=== PATIENT | female | born 1945 | race Caucasian/White ===

== ENCOUNTER 2021-04-09 08:21 | Outpatient (CLI) | payer MEDICARE, SELFPAY ==
[2021-04-09 08:36] LABS: Basophils Absolute Auto 0.04 K/mm3 (0.00-0.10); Basophils Percent Auto 0.5 % (0.0-1.0); Eosinophils Absolute Auto 0.13 K/mm3 (0.02-0.50); Eosinophils Percent Auto 1.6 % (1.0-6.0); Hematocrit 43.9 % (35.0-42.0); Hemoglobin 13.8 g/dL (11.7-13.8); Immature Granulocyte Absolute 0.12 K/mm3 (0.00-0.00); Immature Granulocyte Percent A 1.5 % (0.0-0.0); Lymphocytes Absolute Auto 1.44 K/mm3 (1.10-4.50); Lymphocytes Percent Auto 17.6 % (18.0-42.0); Mean Corpuscular HGB Conc 31.4 g/dL (32.0-36.0); Mean Corpuscular Hemoglobin 30.5 pg (27.0-31.0); Mean Corpuscular Volume 96.9 fL (78.0-102.0); Mean Platelet Volume 9.6 fl (9.2-11.8); Monocytes Absolute Auto 0.68 K/mm3 (0.10-0.90); Monocytes Percent Auto 8.3 % (2.0-11.0); Neutrophils Absolute Auto 5.8 K/mm3 (1.7-7.2); Neutrophils Percent Auto 70.5 % (50.0-70.0); Platelet Count Result 233 K/mm3 (150-420); Red Blood Count 4.53 M/mm3 (4.20-5.40); White Blood Count 8.2 K/mm3 (4.8-10.8)
[2021-04-09 08:39] LABS: Add Urine Microscopic? YES; Appearance Urine Sl Cloudy (Clear); Bilirubin Urine Negative (Negative); Blood Urine Negative (Negative); Color Urine Light Yellow (Yellow); Glucose Urine UA Negative (Negative); Ketones Urine Negative (Negative); Leukocyte Esterase Ur Trace (Negative); Nitrate Urine Negative (Negative); Protein Urine Negative (Negative); Urobilinogen Urine 0.2 mg/dL (0.2-1.0)
[2021-04-09 08:44] LABS: Bacteria Urine Trace /hpf; RBC Urine None seen /hpf (0-2); Squamous Epithelial Cell Urine Moderate /hpf (Few); WBC Urine 0-3 /hpf (0-3)
[2021-04-09 09:11] LABS: Alanine Aminotransferase 35 U/L (14-59); Alkaline Phosphatase 153 U/L (46-116); Anion Gap 7 mmol/L (8-16); Aspartate Amino Transferase 22 U/L (15-37); Bilirubin,Total 0.5 mg/dL (0.00-1.00); Blood Urea Nitrogen 25 mg/dL (7-18); Calcium 9.4 mg/dL (8.5-10.1); Carbon Dioxide 31 mmol/L (21-32); Chloride 103 mmol/L (98-108); Cholesterol 152 mg/dL (0-200); Estimated Glomerular Filt Rate > 60; Glucose 111 mg/dL (70-99); HDL Direct 47 mg/dL (40-60); LDL Cholesterol Calculated 89 mg/dL (<130); Osmolality Calculated 297 mOsm/kg (285-295); Potassium 4.2 mmol/L (3.5-5.1); Sodium 141 mmol/L (136-145); Total Protein 7.1 g/dL (6.4-8.2); Triglycerides 82 mg/dL (0-150)
[2021-04-09 18:18] LABS: Hemoglobin A1C 6.2 % (<5.7)
== END 2021-04-09 08:22 | disposition home or self-care (01) ==
LOC: CHSLAB 08:23
PROVIDERS: PCP Internal Medicine; Visit Provider Internal Medicine
DX: R82.71 Bacteriuria (principal); I25.10 Atherosclerotic heart disease of native coronary artery without angina pectoris; J44.9 Chronic obstructive pulmonary disease, unspecified; R73.01 Impaired fasting glucose
CPT/HCPCS: 36415; 80053; 80061; 81001; 83036; 85025; 87086; 87088

== ENCOUNTER 2021-11-20 10:07 | Outpatient (CLI) | payer MEDICARE, BC, SELFPAY ==
--- NOTE | ~2021-11-20 | XR_ITS ---
EXAMINATION: XR chest 2V EXAM DATE: 11/20/2021 10:23 INDICATION: Cough since Wednesday hx of COPD. TECHNIQUE: Frontal and lateral projections of the chest obtained and reviewed. Comparison is made to prior examination from 05/24/2018. FINDINGS: Bibasilar linear scarring or subsegmental atelectasis. No confluent consolidation. There ar e no pleural effusions. The cardiomediastinal silhouette is within normal limits. There is no pneum othorax suspected. The bones and soft tissues are unremarkable. IMPRESSION: Bibasilar linear opacity most consistent with scarring or atelectasis. Reviewed, dictated and finalized at location B. IMPRESSION: Bibasilar linear opacity most consistent with scarring or atelectas is.
== END 2021-11-20 10:08 | disposition home or self-care (01) ==
LOC: CHSIMG 10:10
PROVIDERS: PCP Internal Medicine; Visit Provider Internal Medicine
DX: R05.9 Cough, unspecified (principal)
CPT/HCPCS: 71046

== ENCOUNTER 2022-05-07 13:29 | Outpatient (CLI) | payer MEDICARE, BC, SELFPAY ==
--- NOTE | ~2022-05-07 | MM_ITS ---
EXAMINATION: MM screening [facility] BI w vitaliy HISTORY: Screening mammogram TECHNIQUE: Craniocaudal and mediolateral oblique 3-D tomosynthesis images were obtained and synthetic 2-D images were generated. CAD analysis was submitted and interpreted. COMPARISON: 11/04/2018, 10/07/2017, 10/06/2016 bilateral screening mammogram examinations BREAST PARENCHYMAL COMPOSITION: The breasts are almost entirely fatty. FINDINGS: There is no evidence of suspicious mass, calcification, or architectural distortion to sugg est malignancy in either breast. There has been no suspicious interval change. IMPRESSION: 1. No mammographic evidence of malignancy. 2. Recommend routine screening mammography in one year. BI-RADS Category 1: Negative Reviewed, dictated and finalized at location A.
--- NOTE | ~2022-05-07 | CT_ITS ---
EXAMINATION: CT lung screening DATE: 05/07/2022 14:17 INDICATION: History of tobacco dependence TECHNIQUE: Computed tomography (CT) of the chest was performed without intravenous contrast. The dose -length product was 144.68 mGy-cm. Automated exposure control and iterative reconstruction technique were employed. COMPARISON: CT dated 08/22/2019 FINDINGS: Heart size normal. No thoracic lymphadenopathy. No significant pleural or pericardial abnor mality. Atherosclerosis of the aorta and coronary arteries. Stable bilateral adrenal nodules, largest on the left measuring 6.6 x 3.4 cm, likely benign adenomas. There is emphysema. No endobronchial les ions. 4 mm right fissural nodule, image 86, unchanged. No new pulmonary nodules or masses. There is d ependent atelectasis. IMPRESSION: 1. Lung-RADS category 2: Benign appearance or behavior. Continue annual screening with noncontrast lo w-dose chest CT in 12 months. Reviewed, dictated and finalized at location B. IMPRESSION: 1. Lung-RADS category 2: Benign appearance or behavior. Continue annual screeni ng with noncontrast low-dose chest CT in 12 months.
== END 2022-05-07 13:30 | disposition home or self-care (01) ==
PROVIDERS: PCP Internal Medicine; Visit Provider Internal Medicine
DX: Z12.31 Encounter for screening mammogram for malignant neoplasm of breast (principal); Z12.2 Encounter for screening for malignant neoplasm of respiratory organs; Z87.891 Personal history of nicotine dependence
CPT/HCPCS: 71271; 77063; 77067

== ENCOUNTER 2023-01-03 19:11 | Emergency (ER) | payer OTHER, MEDICARE, BC, SELFPAY ==
[2023-01-03] VITALS (13 sets, daily range): BP systolic 115–143; BP diastolic 53–115; PULSE 66–77; RESP 16–18; TEMP 36.5; O2SAT 89–95
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
--- NOTE | ~2023-01-03 | CT_ITS ---
EXAMINATION: CTA chest PE protocol DATE: 01/03/2023 23:50 INDICATION: Shortness of breath. TECHNIQUE: Computed tomography angiography (CTA) of the chest was performed with 100 mL Omnipaque-350 intravenous contrast timed to evaluate the pulmonary arteries. Coronal maximum intensity projection 3D-reconstructions were created by the technologist. Automated exposure control and iterative reconst ruction technique were employed. The dose-length product was 676.42 mGy-cm. COMPARISON: Chest CT 01/03/2023, 08/22/19 FINDINGS: There is mild emphysema. There is mild dependent atelectasis bilaterally. There is smooth s eptal thickening in the lungs, consistent mild pulmonary edema. No pleural effusion. Cardiomegaly is noted. There are coronary artery calcifications. The central pulmonary arteries are enlarged, consist ent with pulmonary arterial hypertension. There is no pulmonary embolus. Calcifications in the spleen are consistent with old granulomatous disease. There is a 2.0 cm mass in right adrenal gland. There is a 6.3 cm mass in left adrenal gland. These findings are stable from 08/22/2019, likely adenomas. Th ere is severe cervical and thoracic spondylosis. IMPRESSION: 1. No pulmonary embolus. 2. Mild pulmonary edema. 3. Mild emphysema. Reviewed, dictated and finalized at location A.
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
--- NOTE | 2023-01-03 19:38 | ECG_ITS ---
Measurements Intervals [place] Rate: 67 P: 85 [place]: 185 QRS: -56 QRSD: 130 T: 32 QT: 423 QTc: 449 Interpretive Statements SINUS RHYTHM RIGHT BUNDLE BRANCH BLOC LEFT ANTERIOR FASCICULAR BLOCK BASELINE ARTIFACT- I, II, III, AVR, AVL, AVF, V1-V6 ABNORMAL ECG NO PREVIOUS ECG AVAILABLE FOR COMPARISON Electronically Signed On 01-04-2023 8:03:11 CDT by Louis Tamayo D.O.
[2023-01-03] MEDS: SODIUM CHLORIDE 0.9% IV 1,000 ML 200 ML IV CONT (20:15)
[2023-01-03] MEDS: MORPHINE SULFATE (*CRX) 2 MG/ML INJ IV PUSH (20:15)
[2023-01-03] MEDS: ONDANSETRON INJ 4 MG/2 ML VIAL IV PUSH (20:16)
[2023-01-03 20:23] LABS: Hematocrit 41.4 % (35.0-42.0); Hemoglobin 13.1 g/dL (11.7-13.8); Mean Corpuscular HGB Conc 31.6 g/dL (32.0-36.0); Mean Corpuscular Hemoglobin 30.5 pg (27.0-31.0); Mean Corpuscular Volume 96.5 fL (78.0-102.0); Mean Platelet Volume 9.5 fl (9.2-11.8); Platelet Count Result 241 K/mm3 (150-420); Red Blood Count 4.29 M/mm3 (4.20-5.40); Red Cell Distribution Width 14.8 % (11.6-14.4)
--- NOTE | 2023-01-03 20:28 | PC.NURSE ---
1999, Pt O2 sat dropping to high 80s-low 90s. Pt places on 2L O2 via NC which brought her O2 sat to 93%.
[2023-01-03 20:35] LABS: INR 0.9; Partial Thromboplastin Time 30.8 SEC (23.90-30.70); Prothrombin Time 9.8 Seconds (9.50-12.10)
[2023-01-03 20:56] LABS: Alanine Aminotransferase 33 U/L (14-59); Albumin Level 3.7 g/dL (3.4-5.0); Alkaline Phosphatase 169 U/L (46-116); Anion Gap 5 mmol/L (8-16); Aspartate Amino Transferase 28 U/L (15-37); Bilirubin,Total 0.3 mg/dL (0.00-1.00); Blood Urea Nitrogen 37 mg/dL (7-18); Calcium 8.9 mg/dL (8.5-10.1); Carbon Dioxide 30 mmol/L (21-32); Chloride 104 mmol/L (98-108); Creatine Kinase 121 U/L (26-192); Estimated CRCL calculation 32 ml/min; Estimated Glomerular Filt Rate 46; Glucose 109 mg/dL (70-99); Osmolality Calculated 297 mOsm/kg (285-295); Potassium 3.6 mmol/L (3.5-5.1); Sodium 139 mmol/L (136-145); Troponin I 15.6 ng/L (0.00-60.4)
--- NOTE | 2023-01-03 22:31 | ECG_ITS ---
Measurements Intervals [place] Rate: 66 P: 84 SC: 210 QRS: -57 QRSD: 126 T: -17 QT: 385 QTc: 406 Interpretive Statements SINUS RHYTHM RIGHT BUNDLE BRANCH BLOCK LEFT ANTERIOR FASCICULAR BLOCK BASELINE ARTIFACT- I, II, III, AVR, AVL, AVF, V1-V6 ABNORMAL ECG COMPARED TO ECG 01/03/2023 20:12:24 NO SIGNIFICANT CHANGES Electronically Signed On 01-04-2023 8:05:16 CDT by Louis Tamayo D.O.
[2023-01-03 22:47] LABS: Appearance Urine Clear (Clear); Bilirubin Urine Negative (Negative); Blood Urine Negative (Negative); Color Urine Light Yellow (Yellow); Glucose Urine UA Negative (Negative); Ketones Urine Negative (Negative); Leukocyte Esterase Ur Trace (Negative); Nitrate Urine Positive (Negative); Protein Urine Negative (Negative); Urobilinogen Urine 0.2 mg/dL (0.2-1.0)
[2023-01-03 22:58] LABS: Add Urine Microscopic? YES; Bacteria Urine 4+ /hpf; Squamous Epithelial Cell Urine Few /hpf (Few)
[2023-01-03] MEDS: IPRATROPIUM 0.5 MG/ALBUTEROL SULFATE 2.5 MG AMPUL.NEB 3 ML INHALATION (23:02)
[2023-01-03 23:14] LABS: D Dimer 1.16 mg/L (0.19-0.50)
[2023-01-04 01:05] VITALS: PULSE 69; RESP 18; O2SAT 87
[2023-01-04 01:12] VITALS: BP 106/82; O2SAT 90
[2023-01-04] MEDS: CEPHALEXIN 500 MG CAPSULE PO (01:58)
[2023-01-04 02:14] VITALS: BP 106/82; PULSE 68; RESP 18; O2SAT 88
== END 2023-01-04 02:15 | disposition home or self-care (01) ==
PROVIDERS: Emergency Provider Emergency Medicine; PCP Internal Medicine
DX: S30.1XXA Contusion of abdominal wall, initial encounter (principal); R07.89 Other chest pain; R09.02 Hypoxemia; N39.0 Urinary tract infection, site not specified; J43.9 Emphysema, unspecified; V49.40XA Driver injured in collision with unspecified motor vehicles in traffic accident, initial encounter; R06.02 Shortness of breath; R05.3 Chronic cough; Z79.51 Long term (current) use of inhaled steroids; Z79.82 Long term (current) use of aspirin
CPT/HCPCS: 36415; 71260; 71275; 74177; 80053; 81001; 82550; 84484; 85027; 85380; 85610; 85730; 93005; 94640; 96361; 96374; 96375; 99284; A9270; J2270; J2405; J7030; Q9967

== ENCOUNTER 2023-01-05 16:00 | Outpatient (CLI) | payer MEDICARE, BC, SELFPAY ==
[2023-01-05 16:21] LABS: Base Excess ABG 1.1 mmol/L (0-2); HCO3 ABG 25.2 mmol/L (23-29); Oxygen Saturation ABG 82.6 % (95-97); Oxyhemoglobin 81.3 % (94-100); PCO2 ABG 38.4 mmHg (35-45); PO2 ABG 46.8 mmHg (75-85); Total Hemoglobin 13.1 g/dL (12.0-18.0); pH ABG 7.44 (7.35-7.45)
[2023-01-05 16:25] LABS: Device ROOM AIR; Modified Allen's Test Pass; Site Drawn LEFT RADIAL
== END 2023-01-05 16:01 | disposition home or self-care (01) ==
LOC: CHSLAB 16:06
PROVIDERS: PCP Internal Medicine; Visit Provider Internal Medicine
DX: J44.9 Chronic obstructive pulmonary disease, unspecified (principal)
CPT/HCPCS: 36600; 82805

== ENCOUNTER 2023-01-26 11:10 | Outpatient (CLI) | payer OTHER, MEDICARE, BC, SELFPAY ==
[2023-01-26 11:15] VITALS: PULSE 69; O2SAT 92
[2023-01-26 11:17] VITALS: PULSE 72; O2SAT 87
[2023-01-26 11:20] VITALS: PULSE 73; O2SAT 85
[2023-01-26 11:23] VITALS: PULSE 70; O2SAT 86
[2023-01-26 11:26] VITALS: PULSE 76; O2SAT 91
--- NOTE | 2023-01-26 12:59 | HOMEO2EVAL ---
Evaluation was performed at [facility] Home Oxygen Evaluation RC: Home Oxygen (O2) Evaluation Start: 01/26/23 12:39 Freq: Status: Active Protocol: RPE Activity Type Activity Date Activity User E-sign Co-sign Detail Recorded Client Recorded Date Recorded By Document 01/26/23 11:15 [email or web address] 01/26/23 12:59 SJB Document 01/26/23 11:17 [email or web address] 01/26/23 12:59 SJB Document 01/26/23 11:20 [email or web address] 01/26/23 12:59 SJB Document 01/26/23 11:23 [email or web address] 01/26/23 12:59 SJB Document 01/26/23 11:26 SJB [email or web address] 01/26/23 12:59 SJB 01/26/23 01/26/23 01/26/23 11:15 11:17 11:20 Home O2 Evaluation [Oxygen] -Test Phase Resting Exercise Exercise -Oxygen Delivery Room Air Room Air Nasal Cannula -Oxygen Flow Rate (L/min) 1 [Pulse Oximetry] -Pulse Oximetry (90-100 %) 92 87 L 85 L [Pulse Rate] -Pulse Rate (60-100 beats/min) 69 72 73 [Evaluation] -Activity Tolerance Good Good -Rating of Perceived Dyspnea (PD) +1 Mild, +1 Mild, Noticeable to Noticeable to the Participant the Participant but Not to an but Not to an Observer Observer -Rate of Perceived Exertion (PE) 11 Fairly light 9 Very light Query Text:Click the Protocol Button to View the RPE Scale [Exercise] -Ambulation Distance (feet) 20 20 -Ambulation Distance (meters) 6.09 6.09 [Comments] -Home Oxygen Evaluation Comments Will begin walk Will start on 1 Will increase on room air. lpm and 02 to 2 lpm and continue walk. continue. [Charges] -Treatment Charges O2 Evaluation - Outpatient 01/26/23 01/26/23 11:23 11:26 Home O2 Evaluation [Oxygen] -Test Phase Exercise Exercise -Oxygen Delivery Nasal Cannula Nasal Cannula -Oxygen Flow Rate (L/min) 2 3 [Pulse Oximetry] -Pulse Oximetry (90-100 %) 86 L 91 [Pulse Rate] -Pulse Rate (60-100 beats/min) 70 76 [Evaluation] -Activity Tolerance Good Excellent -Rating of Perceived Dyspnea (PD) +1 Mild, +1 Mild, Noticeable to Noticeable to the Participant the Participant but Not to an but Not to an Observer Observer -Rate of Perceived Exertion (PE) 11 Fairly light 11 Fairly light Query Text:Click the Protocol Button to View the RPE Scale [Exercise] -Ambulation Distance (feet) 150 360 -Ambulation Distance (meters) 45.71 109.72 [Comments] -Home Oxygen Evaluation Comments Will increase Pt finished 02 to 3 lpm and walk doing continue walk. approx 550 ft, on 3 lpm 02. Sp02s stayed at and above 91%. PLB was encouraged to slow breathing down. Tolerated very well. [Charges] -Treatment Charges
== END 2023-01-26 11:11 | disposition home or self-care (01) ==
LOC: CHSCARD 11:16
PROVIDERS: PCP Internal Medicine; Visit Provider Internal Medicine
DX: J44.9 Chronic obstructive pulmonary disease, unspecified (principal)
CPT/HCPCS: 94618

== ENCOUNTER 2023-03-01 10:50 | Outpatient (CLI) | payer MEDICARE, BC, SELFPAY ==
[2023-03-01 11:15] VITALS: PULSE 72; O2SAT 96
[2023-03-01 11:20] VITALS: PULSE 87; O2SAT 87
[2023-03-01 11:21] VITALS: O2SAT 92
[2023-03-01 11:30] VITALS: PULSE 76; O2SAT 96
--- NOTE | 2023-03-01 11:59 | HOMEO2EVAL ---
Evaluation was performed at [facility] Home Oxygen Evaluation RC: Home Oxygen (O2) Evaluation Start: 03/01/23 11:57 Freq: Status: Active Protocol: RPE Activity Type Activity Date Activity User E-sign Co-sign Detail Recorded Client Recorded Date Recorded By Document 03/01/23 11:15 [facility] [id number] 03/01/23 11:59 [facility] Document 03/01/23 11:20 [facility] [id number] 03/01/23 11:59 [facility] Document 03/01/23 11:21 [facility] [id number] 03/01/23 11:59 [facility] Document 03/01/23 11:30 [facility] [id number] 03/01/23 11:59 [facility] 03/01/23 03/01/23 03/01/23 11:15 11:20 11:21 Home O2 Evaluation [Oxygen] -Test Phase Resting Exercise Exercise -Oxygen Delivery Room Air Room Air Nasal Cannula -Oxygen Flow Rate (L/min) 2 [Pulse Oximetry] -Pulse Oximetry (90-100 %) 96 87 L 92 [Pulse Rate] -Pulse Rate (60-100 beats/min) 72 87 [Evaluation] -Activity Tolerance Good [Comments] -Home Oxygen Evaluation Comments Pt requires 2 L with activity/ exertion [Charges] -Treatment Charges O2 Evaluation - Outpatient 03/01/23 11:30 Home O2 Evaluation [Oxygen] -Test Phase Resting -Oxygen Delivery Room Air -Oxygen Flow Rate (L/min) [Pulse Oximetry] -Pulse Oximetry (90-100 %) 96 [Pulse Rate] -Pulse Rate (60-100 beats/min) 76 [Evaluation] -Activity Tolerance [Comments] -Home Oxygen Evaluation Comments [Charges] -Treatment Charges
--- NOTE | 2023-03-01 12:00 | PCRCNOTE ---
Home O2 eval completed today. Pt requires 2 L with activity. Room air at rest
--- NOTE | 2023-03-12 13:51 | P.PCNPFT_ITS ---
PFT Procedure Performed PFT Procedure Performed Spirometry with Pre/Post Bronchodilator Plethysmography (Lung Vol) Diffusing Cap (DLCO) Flow Vol Loop PFT Interpretation DOS: 03/01/2023 REQUESTING: Mera Staton MD REASON FOR TESTING: COPD PULMONARY FUNCTION TESTS Results are reliable and reproducible. Spirometry: Pre-bronchodilator FEV1 is 1.42 L, 83% predicted, normal. Pre- bronchodilator FVC is 2.32 L, 108% predicted, normal. The FEV1/ FVC ratio is 61% predicted, mildly decreased. After bronchodilator, there is no change in the FEV1, and a 3% drop in the FVC, 2.25 L, 105% predicted, not statistically significant. The FEV1/ FVC ratio is 63%, mildly decreased. Lung volumes: Total lung capacity is 4.06 L, 103% predicted, normal. Residual volume is 1.74 L, 104% predicted, normal. RV /TLC is 43%, normal. Diffusion: DLCO is 9.4, 54% predicted, moderately decreased. DLCO/VA is 2.58, 76% predicted, normal. Flow volume loop: There is mild coving of the expiratory limb. IMPRESSION: This study shows a mild obstructive ventilatory impairment without response to bronchodilator, normal lung volumes, moderate diffusion impairment that corrects for alveolar volume. No prior studies for comparison. Mera Staton MD
== END 2023-03-01 10:51 | disposition home or self-care (01) ==
LOC: CHSCARD 10:51
PROVIDERS: PCP Internal Medicine; Visit Provider Internal Medicine Critical Care Medicine
DX: J44.9 Chronic obstructive pulmonary disease, unspecified (principal)
CPT/HCPCS: 94060; 94618; 94726; 94729

== ENCOUNTER 2023-05-11 11:34 | Outpatient (CLI) | payer MEDICARE, BC, SELFPAY ==
--- NOTE | ~2023-05-11 | MM_ITS ---
EXAMINATION: MM screening [facility] BI w vitaliy HISTORY: Screening mammogram TECHNIQUE: Craniocaudal and mediolateral oblique 3-D tomosynthesis images were obtained and synthetic 2-D images were generated. CAD analysis was submitted and interpreted. COMPARISON: 05/07/2022, 11/04/2018, 10/07/2017 BREAST PARENCHYMAL COMPOSITION: The breasts are almost entirely fatty. FINDINGS: No suspicious mass, calcification, or architectural distortion are identified in either ann ast to suggest malignancy. There has been no suspicious interval change. IMPRESSION: 1. No mammographic evidence of malignancy. 2. Recommend routine screening mammography in one year. BI-RADS Category 1: Negative Reviewed, dictated and finalized at location A.
--- NOTE | ~2023-05-11 | US_ITS ---
EXAMINATION: US venous doppler LE RT DATE: 05/11/2023 12:19 INDICATION: Right lower limb swelling TECHNIQUE: Grayscale ultrasound images without and with compression and Doppler ultrasound images of the right lower extremity veins were obtained. COMPARISON: None. FINDINGS: The visualized portions of right common femoral vein, profunda (deep) femoral vein, femoral vein, pop liteal vein, peroneal trunk, posterior tibial veins, peroneal veins, gastrocnemius vein and greater s aphenous vein outflow are patent. IMPRESSION: 1. No deep venous thrombosis in the right lower limb. Reviewed, dictated and finalized at location A.
== END 2023-05-11 11:35 | disposition home or self-care (01) ==
LOC: CHSIMG 11:37
PROVIDERS: PCP Internal Medicine; Visit Provider Nurse Practitioner Family
DX: Z12.31 Encounter for screening mammogram for malignant neoplasm of breast (principal); M79.89 Other specified soft tissue disorders
CPT/HCPCS: 77063; 77067; 93971

== ENCOUNTER 2024-06-08 12:55 | Outpatient (CLI) | payer MEDICARE, BC, SELFPAY ==
--- NOTE | ~2024-06-08 | MM_ITS ---
EXAMINATION: MM screening [facility] BI w vitaliy HISTORY: Screening mammogram TECHNIQUE: Craniocaudal and mediolateral oblique 3-D tomosynthesis images were obtained and synthetic 2-D images were generated. CAD analysis was submitted and interpreted. COMPARISON: 05/11/2023, 04/28/2022, 11/04/2018 BREAST PARENCHYMAL COMPOSITION:Not Dense. The breasts are almost entirely fatty FINDINGS: No suspicious mass, calcification, or architectural distortion are identified in either ann ast to suggest malignancy. There has been no suspicious interval change. IMPRESSION: No mammographic evidence of malignancy. Recommend routine screening mammography in one year. BI-RADS Category 1: Negative Reviewed, dictated and finalized at location .
== END 2024-06-08 12:56 | disposition home or self-care (01) ==
LOC: CHSIMG 12:58
PROVIDERS: PCP Internal Medicine; Visit Provider Internal Medicine
DX: Z12.31 Encounter for screening mammogram for malignant neoplasm of breast (principal)
CPT/HCPCS: 77063; 77067

== ENCOUNTER 2025-04-02 11:10 | Emergency (ER) | payer MEDICARE, BC, SELFPAY ==
--- NOTE | ~2025-04-02 | XR_ITS ---
EXAMINATION: XR ankle LT min 3V DATE: 04/02/2025 11:41 INDICATION: Pain. No known injury TECHNIQUE: 3 images of the left ankle were obtained. COMPARISON: None available FINDINGS: Bone mineralization is within normal limits. Moderate-sized plantar calcaneal spur. Talar dome is unremarkable. Soft tissue swelling about the left ankle. Mild narrowing of the tibiotalar joint. IMPRESSION: 1. No fracture. 2. Moderate-sized plantar calcaneal spur. 3. Soft tissue swelling about the left ankle. If symptoms persist or worsen, consider a short-term follow-up study or additional imaging for further assessment. Reviewed, dictated and finalized at location Q. IMPRESSION: 1. No fracture. 2. Moderate-sized plantar calcaneal spur. 3. Soft tissue swelling about the left ankle. If symptoms persist or worsen, consider a short-term follow-up study or additio nal imaging for further assessment.
[2025-04-02 11:14] VITALS: BP 148/64; PULSE 73; RESP 18; TEMP 36.8; O2SAT 95
[2025-04-02 11:49] LABS: Hematocrit 37.1 % (35.0-42.0); Hemoglobin 11.6 g/dL (11.7-13.8); Immature Granulocyte Percent A 0.8 % (0.0-0.0); Lymphocytes Absolute Auto 0.91 K/mm3 (1.10-4.50); Mean Corpuscular HGB Conc 31.3 g/dL (32-36); Mean Corpuscular Hemoglobin 30.4 pg (27.0-31.0); Mean Corpuscular Volume 97.4 fL (78.0-102.0); Nucleated Red Blood Cells Absolute Auto 0.00 K/mm3 (0.00-0.00); Nucleated Red Blood Cells Perc 0.0 % (0-0.0); Platelet Count Result 205 K/mm3 (150-420); Red Blood Count 3.81 M/mm3 (4.20-5.40); White Blood Count 11.2 K/mm3 (4.8-10.8)
--- OUTSIDE RECORDS SUMMARY | 2025-04-02 11:51 | XMS_ITS | Encounter Summary ---
Author Organization [facility] Address [address] [place] [address] Care Team Providers Care Short Goods Drier Name Role Phone Saúl Avendaño MD Unavailable [phone] Emile Marcelo MD Primary Care Provider [phone] Federica Roberson MD Unavailable Encounter Details Date Type Department Care Team (Late st Contact Info) Description 02/03/2023 MyChart Message Enc [facility] - [facility] [address] [place], [place] [id number] [facility] [place], [facility] Provider Air Quality Message Social History Tobacco Use Types Packs/Day Years Used Date Smoking Tobacco: Former Cigarettes Q uit: 12/23/2015 Smokeless Tobacco: Never Comments Unknown Sex and Gender Information Value Date Recorded Sex Assigned at Not on file Legal Sex Female 9:08 AM CDT Gender Identity Not on file Sexual Orientation Not on file Occupation Industry Job Start Date Job End Date retired Not on file Not on file Not on file documented as of this encounter Plan of Treatment Upcoming Encounters Date Type Department Care Team (Late st Contact Info) Description 06/18/2025 2:30 PM IMPERSONATOR CHARACTER Office Visit [facility] [place] [address] Federica Roberson MD [address] [place] [address] documented as of this encounter Visit Diagnoses Not on filedocumented in this encounter Care Teams Short Goods Drier Relationship Specialty Start Date End Date Emile Marcleo MD [address] [place] [id number] PCP - General INTERNAL MEDICINE 02/27/16 Saúl Avendaño MD [address] [place] [address] [employer] Operator CARDIOVASCULAR DISEASE 02/27/16 12/01/23 Federica Roberson MD [address] [place] [address] Consulting Physician CARDIOVASCULAR DISEASE 12/02/23 documented as of this encounter
--- OUTSIDE RECORDS SUMMARY | 2025-04-02 11:51 | XMS_ITS | Clinical Summary ---
Author Organization [facility] Address [address] [place] [address] Care Team Providers Care Drop Forge Operator Name Role Phone Emile Marcelo MD Primary Care Provider [phone] Federica Roberson MD Unavailable Allergies No known active allergies Medications Cholecalciferol (VITAMIN D) 1000 UNIT tablet Take 1 tablet (1,000 Units total) by mouth daily. Active vitamin C 500 MG tablet Take 1 tablet (500 mg total) by mouth daily. Active Multiple Vitamins-Minera ls ([facility] OR) Active vitamin B-6 100 MG tablet Take 1 tablet (100 mg total) by mouth daily. Active famotidine 40 MG tablet Take 1 tablet (40 mg total) by mouth daily. 01/07/2020 Active montelukast 10 MG tablet Take 1 tablet (10 mg total) by mouth daily. 05/16/2016 Active spironolactone- hydroCHLOROthia zide 25-25 MG tablet Take 1 tablet by mouth daily. 05/19/2016 Active verapamil ER 180 MG 24 hr capsule Take 1 capsule (180 mg total) by mouth daily. 03/12/2020 Active albuterol sulfate HFA 108 (90 Base) MCG/ACT inhaler Inhale 2 puffs into the lungs every 6 (six) hours as needed for Wheezing. Active TRELEGY ELLIPTA 200-62.5-25 MCG/INH AEROSOL POWDER, BREATH ACTIVATED Inhale 1 puff into the lungs every other day. 04/04/2022 Active aspirin EC (ECOTRIN) 81 MG tablet Take 1 tablet (81 mg total) by mouth daily. 05/07/2022 Active OXYGEN 2 L/min by Nasal route. As directed Active Active Problems Problem Noted Date Diagnosed Date Unstable angina pectoris ([facility]) 12/02 Coronary artery disease involving [place] coronar y artery 08/14/2016 S/P drug eluting coronary stent placement 2016 HLD (hyperlipidemia) HTN (hypertension) COPD (chronic obstructive pu lmonary disease) ([facility]) Sleep apnea Family History Medical History Relation Comments Coronary artery disease Father Open Heart Father Stroke Mother Relation Status Comments Brother Alive Father Mother Social History Tobacco Use Types Packs/Day Years Used Date Smoking Tobacco: Former Cigarettes Q uit: 12/23/2015 Smokeless Tobacco: Never Tobacco Cessation:Counseling Given: Not Answered Alcohol Use Standard Drinks/Week Comments Yes 0 (1 standard drink = 0.6 oz pur e alcohol) 3/week Comments Unknown Sex and Gender Information Value Date Recorded Sex Assigned at Not on file Legal Sex Female 9:08 AM CDT Gender Identity Not on file Sexual Orientation Not on file Occupation Industry Job Start Date Job End Date retired Not on file Not on file Not on file Last Filed Vital Signs Vital Sign Reading Time Taken Comments Blood Pressure 132/74 06/12/2024 2:40 PM DIGITAL SALES DIRECTOR Pulse 74 06/12/2024 2:40 PM DIGITAL SALES DIRECTOR Temperature - - Respiratory Rate 18 06/12/2024 2:40 PM DIGITAL SALES DIRECTOR Oxygen Saturation 91% 06/12/2024 2:40 PM DIGITAL SALES DIRECTOR Inhaled Oxygen Concentration - - Weight 70.3 kg (155 lb) 06/12/2024 2:40 PM DIGITAL SALES DIRECTOR Height 152.4 cm (5') 06/12/2024 2:40 PM DIGITAL SALES DIRECTOR Body Mass Index 30.27 06/12/2024 2:40 PM DIGITAL SALES DIRECTOR Plan of Treatment Upcoming Encounters Date Type Department Care Team (Late st Contact Info) Description 06/18/2025 2:30 PM DIGITAL SALES DIRECTOR Office Visit [facility] [place] [address] Federica Roberson MD [address] [place] [id number] Health Maintenance Due Date Last Done Comments ASCVD Statin 1944 AAA SCREENING 2009 Annual Medicare Wellness Visit 2009 Dexa Scan (General) 2009 Pneumococcal Vaccine: 50+ Years (2 of 2 - PPSV23) 07/27/2016 06/01/2016, 04/24/2011 ASCVD LDL 06/23/2017 06/23/2016, 01/04/2016 COVID-19 Vaccine ( season) 2024 06/12/2022, 05/22/2021, 10/01/2020, Additional history exists DTaP, Tdap and Td Vaccines (3 - Td or Tdap) 05/11/2033 05/11/2023, 04/17/2015 Zoster Vaccines Completed 05/23/2020, 02/07, 03/01/2010, Additional history exists RSV Immunization or 60+ Years Completed 05/11/2023 Meningococcal B Vaccine Aged Out No l onger eligible based on patient's age to complete this topic Meningococcal Vaccine Aged Out No mikaela lj eligible based on patient's age to complete this topic RSV Immunizations Under 20 Months Aged Out No longer eligible based on patient's age to complete this topic Procedures Procedure Name Priority Date/Time Associated Diagnosis Comments LIPID PANEL (OUTSIDE LAB) Routine 06/23/2016 from Last 3 Months or Most Recently Relevant to Health Maintenance Results * LIPID PANEL (OUTSIDE LAB) (06/23/2016) CHOLESTEROL 193 TRIGLYCERIDES 145 HDL 56 LDL (CALCULATED) 108 NON HDL CHOLESTEROL 137 CHOL/HDL RATIO 3.4 06/23/2016 us Doc [facility] Abstract LAB-OUTSIDE/ABSTRACTED Final Result from Last 3 Months or Most Recently Relevant to Health Maintenance Insurance [facility] MEDICARE Advance Directives Documents on File Type Date Recorded Patient Biology Specialist Expl anation Advance Directives and Living Will 11/27/2016 POWER OF TECHNICAL MANAGER FO R HEALTH CARE Advance Directives and Living Will 11/27/2016 SHORT FORM POWER OF TECHNICAL MANAGER Advance Directives and Living Will 08/04/2016 POWER OF TECHNICAL MANAGER FO R HEALTH CARE Advance Directives and Living Will 07/29/2016 3:10 PM POA - Geoff Harvey Care Teams Drop Forge Operator Relationship Specialty Start Date End Date Emile Marcelo MD [address] [place] [phone] PCP - General INTERNAL MEDICINE 02/27/16 Federica Roberson MD [address] [place] [address] Consulting Physician CARDIOVASCULAR DISEASE 12/02/23
--- OUTSIDE RECORDS SUMMARY | 2025-04-02 11:51 | XMS_ITS | Encounter Summary ---
Author Organization [facility] Address [address] [place] [address] Care Team Providers Care Needle Grader Name Role Phone Saúl Avendaño MD Unavailable [phone] Emile Marcelo MD Primary Care Provider [phone] Federica Roberson MD Unavailable Encounter Details Date Type Department Care Team (Late st Contact Info) Description 12/29/2016 Abstract [facility] [address] [place] [phone] Abstract, Doc [facility] Social History Tobacco Use Types Packs/Day Years Used Date Smoking Tobacco: Former Cigarettes Q uit: 12/23/2015 Comments Unknown Sex and Gender Information Value [...] st Contact Info) Description 06/18/2025 2:30 PM COMPLETIONS MANAGER Office Visit [facility] [place] [address] Federica Roberson MD [address] [place] [address] documented as of this encounter Procedures Procedure Name Priority Date/Time Associated Diagnosis Comments CMP (ABSTRACTED LAB) Routine 12/02/2016 BASIC METABOLIC PANEL Routine 12/02/2016 LIPID PANEL (OUTSIDE LAB) Routine 06/23/2016 CMP (ABSTRACTED LAB) Routine 06/23/2016 LIPID PANEL (OUTSIDE LAB) Routine 01/04/2016 CBC (OUTSIDE LAB) Routine 01/04/2016 documented in this encounter Results * (ABNORMAL) CMP (ABSTRACTED LAB) (12/02/2016) SODIUM S/P/B 136 POTASSIUM S/P/B 4.1 CHLORIDE S/P/B 104 CO2 23.4 BUN 37(A) <=20 CREATININE S/P/B 1.02(A) 0.5 - 1.0 EGFR AFR. AMER. 53 >60 - 90 EGFR NON-AFR. AMER. 65 <=90 CALCIUM S/P/B 9.6 GLUCOSE 130(A) <=109 TOTAL PROTEIN S/P/B 7.0 ALBUMIN S/P/B 4.2 3.5 - 5.0 AST 20 ALT 10 ALKALINE PHOSPHATASE S/P/B 100 BILIRUBIN TOTAL S/P/B 0.3 12/02/2016 us Doc [facility] Abstract LAB-OUTSIDE/ABSTRACTED Final Result * (ABNORMAL) BASIC METABOLIC PANEL (12/02/2016) SODIUM S/P/B 141 POTASSIUM S/P/B 4.0 CO2 25.7 CHLORIDE S/P/B 108(A) <=107 GLUCOSE 96 CALCIUM S/P/B 9.0 BUN 22(A) <=20 CREATININE S/P/B 0.92 0.5 - 1.0 EGFR AFR. AMER. 73 <=90 EGFR NON-AFR. AMER. 60 >60 - 90 12/02/2016 us Doc [facility] Abstract LABORATORY Final Result * (ABNORMAL) CMP (ABSTRACTED LAB) (06/23/2016) SODIUM S/P/B 139 POTASSIUM S/P/B 4.3 CHLORIDE S/P/B 101 CO2 29 BUN 25 CREATININE S/P/B 1.01(A) 0.5 - 0.99 EGFR AFR. AMER. 65 <=90 EGFR NON-AFR. AMER. 56 >60 - 90 CALCIUM S/P/B 10.2 GLUCOSE 105(A) <=99 TOTAL PROTEIN S/P/B 6.9 ALBUMIN S/P/B 4.5 3.5 - 5.0 AST 21 ALT 17 ALKALINE PHOSPHATASE S/P/B 108 BILIRUBIN TOTAL S/P/B 0.5 06/23/2016 us Doc [facility] Abstract LAB-OUTSIDE/ABSTRACTED Final Result * LIPID PANEL (OUTSIDE LAB) (06/23/2016) CHOLESTEROL 193 TRIGLYCERIDES 145 HDL 56 LDL (CALCULATED) 108 NON HDL CHOLESTEROL 137 CHOL/HDL RATIO 3.4 06/23/2016 us Doc [facility] Abstract LAB-OUTSIDE/ABSTRACTED Final Result * CBC (OUTSIDE LAB) (01/04/2016) WBC 13.8 HGB 13.9 HCT 43.1 PLT 250 RBC 4.57 01/04/2016 us Doc [facility] Abstract LAB-OUTSIDE/ABSTRACTED Final Result * LIPID PANEL (OUTSIDE LAB) (01/04/2016) CHOLESTEROL 174 TRIGLYCERIDES 128 HDL 56 LDL (CALCULATED) 92 NON HDL CHOLESTEROL 118 CHOL/HDL RATIO 3.1 01/04/2016 us Doc [facility] Abstract LAB-OUTSIDE/ABSTRACTED Final Result documented in this encounter Visit Diagnoses Not on filedocumented in this encounter Care Teams Needle Grader Relationship Specialty Start Date End Date Emile Marcelo MD [address] [place] [phone] PCP - General INTERNAL MEDICINE 02/27/16 Saúl Avendaño MD [address] [place] [address] Orlando Brake Rider CARDIOVASCULAR DISEASE 02/27/16 12/01/23 Federica Roberson MD [address] [place] [address] Consulting Physician CARDIOVASCULAR DISEASE 12/02/23 documented as of this encounter
[2025-04-02 12:02] LABS: Alanine Aminotransferase 26 U/L (6-35); Albumin Level 4.1 g/dL (3.5-5.1); Alkaline Phosphatase 118 U/L (38-126); Anion Gap 7 mmol/L (4-12); Aspartate Amino Transferase 33 U/L (14-36); Bilirubin,Total 0.6 mg/dL (0.2-1.3); Blood Urea Nitrogen 22 mg/dL (7-17); Calcium 9.5 mg/dL (8.4-10.2); Carbon Dioxide 29 mmol/L (22-30); Chloride 103 mmol/L (98-107); Estimated CRCL calculation 44 ml/min; Estimated Glomerular Filt Rate > 60; Glucose 114 mg/dL (65-110); Osmolality Calculated 292 mOsm/kg (285-295); Potassium 3.9 mmol/L (3.4-5.0); Sodium 139 mmol/L (137-145); Total Protein 6.7 g/dL (6.3-8.2)
[2025-04-02 12:03] LABS: Uric Acid 7.7 mg/dL (2.5-7.5)
[2025-04-02 12:04] LABS: CRP 4.0 mg/dL (<1.0)
--- OUTSIDE RECORDS SUMMARY | 2025-04-02 12:15 | XMS_ITS | Encounter Summary ---
Author Organization [facility] Address [address] [place] [address] Care Team Providers Care Electrician Control Equipment Name Role Phone Saúl Avendaño MD Unavailable [phone] Emile Marcelo MD Primary Care Provider [phone] Federica Roberson MD Unavailable Encounter Details Date Type Department Care Team (Late st Contact Info) Description 12/29/2016 Abstract [facility] [address] [place] [phone] Abstract, Doc [facility] Social History Tobacco [...] st Contact Info) Description 06/18/2025 2:30 PM WASTE MACHINE OPERATOR Office Visit [facility] [place] [address] Federica Roberson MD [address] [place] [address] documented as of this encounter [...] on filedocumented in this encounter Care Teams Electrician Control Equipment Relationship Specialty Start Date End Date Emile Marcelo MD [address] [place] [phone] PCP - General INTERNAL MEDICINE 02/27/16 Saúl Avendaño MD [address] [place] [address] Erie Streetcar Dispatcher CARDIOVASCULAR DISEASE 02/27/16 12/01/23 Federica Roberson MD [address] [place] [address] Consulting Physician CARDIOVASCULAR DISEASE 12/02/23 documented as of this encounter
--- OUTSIDE RECORDS SUMMARY | 2025-04-02 12:15 | XMS_ITS | Encounter Summary ---
Author Organization [facility] Address [address] [place] [address] Care Team Providers Care Application Coordinator Name Role Phone Saúl Avendaño MD Unavailable [phone] Emile Marcelo MD Primary Care Provider [phone] Federica Roberson MD Unavailable Encounter Details Date Type Department Care Team (Late st Contact Info) Description 02/03/2023 MyChart Message Enc [facility] [address] [place], [place] [id number] [place], [facility] Provider Air Quality Message Social History Tobacco [...] st Contact Info) Description 06/18/2025 2:30 PM PUMPER HAND Office Visit [facility] [place] [address] Federica Roberson MD [address] [place] [address] documented as of this encounter Visit Diagnoses Not on filedocumented in this encounter Care Teams Application Coordinator Relationship Specialty Start Date End Date Emile Marcelo MD [address] [place] [phone] PCP - General INTERNAL MEDICINE 02/27/16 Saúl Avendaño MD [address] [place] [address] [place] Finish Operator Tig Welder CARDIOVASCULAR DISEASE 02/27/16 12/01/23 Federica Roberson MD [address] [place] [address] Consulting Physician CARDIOVASCULAR DISEASE 12/02/23 documented as of this encounter
--- OUTSIDE RECORDS SUMMARY | 2025-04-02 12:15 | XMS_ITS | Clinical Summary ---
Author Organization [facility] Address [address] [place] [address] Care Team Providers Care Smooth Stucco Resurfacer Name Role Phone Emile Marcelo MD Primary Care Provider [phone] Federica Roberson MD Unavailable Allergies No known active allergies Medications Cholecalciferol (VITAMIN D) 1000 UNIT tablet Take 1 tablet (1,000 Units total) by mouth daily. Active vitamin C 500 MG tablet Take 1 tablet (500 mg total) by mouth daily. Active Multiple Vitamins-Minera ls ([facility] OR) Active vitamin B-6 100 MG tablet [...] Noted Date Diagnosed Date Unstable angina pectoris ([facility]) 12/02 Coronary artery disease involving [place] coronar y artery 08/14/2016 S/P drug eluting coronary stent placement 2016 HLD (hyperlipidemia) HTN (hypertension) COPD (chronic obstructive pu lmonary disease) ([facility]) Sleep apnea Family History Medical [...] Comments Blood Pressure 132/74 06/12/2024 2:40 PM CLIENT LIAISON Pulse 74 06/12/2024 2:40 PM CLIENT LIAISON Temperature - - Respiratory Rate 18 06/12/2024 2:40 PM CLIENT LIAISON Oxygen Saturation 91% 06/12/2024 2:40 PM CLIENT LIAISON Inhaled Oxygen Concentration - - Weight 70.3 kg (155 lb) 06/12/2024 2:40 PM CLIENT LIAISON Height 152.4 cm (5') 06/12/2024 2:40 PM CLIENT LIAISON Body Mass Index 30.27 06/12/2024 2:40 PM CLIENT LIAISON Plan of Treatment Upcoming Encounters Date Type Department Care Team (Late st Contact Info) Description 06/18/2025 2:30 PM CLIENT LIAISON Office Visit [facility] [place] [address] Federica Roberson MD [address] [place] [address] Health Maintenance Due Date Last Done Comments [...] Most Recently Relevant to Health Maintenance Insurance [facility] MEDICARE Advance Directives Documents on File Type Date Recorded Patient Industrial Gas Service Helper Expl anation Advance Directives and Living Will 11/27/2016 POWER OF MACHINE SETTER SHEET METAL FO R HEALTH CARE Advance Directives and Living Will 11/27/2016 SHORT FORM POWER OF MACHINE SETTER SHEET METAL Advance Directives and Living Will 08/04/2016 POWER OF MACHINE SETTER SHEET METAL FO R HEALTH CARE Advance Directives and Living Will 07/29/2016 3:10 PM POA - Geoff Harvey Care Teams Smooth Stucco Resurfacer Relationship Specialty Start Date End Date Emile Marcelo MD [address] [place] [phone] PCP - General INTERNAL MEDICINE 02/27/16 Federica Roberson MD [address] [place] [address] Consulting Physician CARDIOVASCULAR DISEASE 12/02/23
--- NOTE | 2025-04-02 12:18 | ED.GENADULT ---
HPI - General Adult General Chief complaint: Extremity Injury, Lower Stated complaint: left ankle Time Seen by Provider: 04/02/25 11:24 Source: patient and family Mode of arrival: ambulatory Limitations: no limitations History of Present Illness HPI narrative: 7-year-old with a history of hypertension, hyperlipidemia, COPD here with the complaints of left ankle pain and swelling started this morning. Patient states that she woke up with the symptoms. She denies any trauma. No history of fever or chills. Denies any trauma. no previous H/O of Gout. Onset (ago): day(s) (1) Location: lower extremity (left ankle) Severity: moderate Quality: aching Pain Consistency: constant Relieving factors: none Exacerbating factors: none Associated symptoms: denies other symptoms Treatments prior to arrival: none Related Data Home Medications ?Medication ?Instructions ?Recorded ?Confirmed ?Last Taken ?Type Actonel 150 mg PO MONTHLY 01/03/23 09/29/24 Unknown History Vision Formula (with lutein) See Rx Instructions .Route .COMPLEX 01/03/23 09/29/24 Unknown History acetaminophen 500 mg PO Q4-6H PRN Pain 01/03/23 09/29/24 Unknown History albuterol sulfate 90 mcg inhalation Q4H PRN 01/03/23 09/29/24 Unknown History Bronchospasm ascorbic acid (vitamin C) 500 mg PO BID 01/03/23 09/29/24 Unknown History aspirin 81 mg PO EVERY OTHER DAY 01/03/23 09/29/24 Unknown History atorvastatin 40 mg tablet 40 mg PO DAILY 01/03/23 09/29/24 Unknown History cholecalciferol (vitamin D3) 25 mcg PO DAILY 01/03/23 09/29/24 Unknown History cranberry 500 mg PO DAILY 01/03/23 09/29/24 Unknown History docusate sodium 100 mg PO DAILY 01/03/23 09/29/24 Unknown History famotidine 40 mg tablet 40 mg PO DAILY 01/03/23 09/29/24 Unknown History hydrochlorothiazide 25 mg PO DAILY 01/03/23 09/29/24 Unknown History melatonin 5 mg PO DAILY 01/03/23 09/29/24 Unknown History montelukast 10 mg tablet 10 mg PO DAILY 01/03/23 09/29/24 Unknown History spironolactone 25 25 tablet PO DAILY 01/03/23 09/29/24 Unknown History mg-hydrochlorothiazide 25 mg tablet verapamil 180 mg 24 hr 180 mg PO DAILY 01/03/23 09/29/24 Unknown History capsule,extended release vitamin B complex See Rx Instructions .Route .COMPLEX 01/03/23 09/29/24 Unknown History Allergies Allergy/AdvReac Type Severity Reaction Status Date / Time No Known Drug Allergies Allergy Unknown Unknown Verified 04/02/25 11:23 Review of Systems Review of Systems: All systems reviewed & are unremarkable except as noted in HPI and below Constitutional: Constitutional: Reports no additional constitutional complaints Eyes: Eyes: Reports no additional eye complaints ENT: Reports system reviewed and no additional complaints, except as documented Cardiovascular: Cardiovascular: Reports no additional cardiovascular complaints Respiratory: Respiratory: Reports no additional respiratory complaints Gastrointestinal: Gastrointestinal: Reports no additional gastrointestinal complaints Musculoskeletal: Musculoskeletal: Reports as per HPI Integumentary/Breasts: Skin/Breast: Reports system reviewed and no additional complaints, except as docu PMFSH Past Medical History Medical History CAD (coronary artery disease) History of tobacco abuse Chronic obstructive pulmonary disease Family History Family History Mother Hypertension High cholesterol Father Heart disease Hypertension Sibling Malignant neoplasm of prostate Diabetes mellitus COPD (chronic obstructive pulmonary disease) Social History Social History Smoking status: Former smoker (1+-2 ppd, x 40 years, quit 2002) Smoking end date: 08/09/02 Alcohol intake: current Alcohol use details: socially Substance use: never Substance use type: does not use Living arrangements: alone Occupation/Education: retired Gender identity (if verbalized by the patient): Female Exam Narrative: GENERAL: Well-appearing, well-nourished, and in no acute distress. HEAD: Normocephalic, atraumatic. EYES: PERRLA and EOMI. ENT: Nares clear, no rhinorrhea or epistaxis. Mucous membranes moist. NECK: Supple. CHEST: Clear to auscultation. No respiratory distress. HEART: Regular rate and rhythm. No murmur heard. Normal peripheral pulses. EXTREMITIES: Normal range of motion. No edema. Examination of the left ankle mild erythema around the medial malleoli. Tender on palpation SKIN: Warm, dry, no rash. NEURO: No focal deficits. Alert and oriented x3. PSYCH: Normal mood and affect. Course Course Emergency Course: I did review her lab work which showed elevated uric acid level and CRP 92 prednisone 60 mg p.o. most likely ankle pain. Advised her to follow with her primary doctor. Vital Signs Vital signs: Vital Signs Temperature 36.8 C 04/02/25 11:14 Pulse Rate 73 04/02/25 11:14 Respiratory Rate 18 04/02/25 11:14 Blood Pressure 148/64 H 04/02/25 11:14 Pulse Oximetry 95 04/02/25 11:14 Oxygen Delivery Room Air 04/02/25 11:14 Temperature 36.8 C 04/02/25 11:14 Pulse Rate 73 04/02/25 11:14 Respiratory Rate 18 04/02/25 11:14 Blood Pressure 148/64 H 04/02/25 11:14 Pulse Oximetry 95 04/02/25 11:14 Oxygen Delivery Room Air 04/02/25 11:14 Medical Decision Making [facility] Narrative Medical decision making narrative: CAD with a history of hypertension the complaints and pain and has no history trauma tender on palpation will do lab work which includes uric acid and CRP obtain x-ray Differential Diagnosis Differential Diagnosis: contusion , gouty arthritis , septic arthritis , cellulitis Medical Records Medical records reviewed: Yes I reviewed the external patient's medical records. Vital Signs Vital Signs: Vital Signs Temperature 36.8 C 04/02/25 11:14 Pulse Rate 73 04/02/25 11:14 Respiratory Rate 18 04/02/25 11:14 Blood Pressure 148/64 H 04/02/25 11:14 Pulse Oximetry 95 04/02/25 11:14 Oxygen Delivery Room Air 04/02/25 11:14 Temperature 36.8 C 04/02/25 11:14 Pulse Rate 73 04/02/25 11:14 Respiratory Rate 18 04/02/25 11:14 Blood Pressure 148/64 H 04/02/25 11:14 Pulse Oximetry 95 04/02/25 11:14 Oxygen Delivery Room Air 04/02/25 11:14 Lab Data Lab results reviewed: Yes I reviewed the patient's lab results. 04/02/25 11:43 04/02/25 11:44 Labs: Lab Results 04/02/25 04/02/25 Range/Units 11:43 11:44 WBC 11.2 H (4.8-10.8) K/mm3 RBC 3.81 L (4.20-5.40) M/mm3 Hgb 11.6 L (11.7-13.8) g/dL Hct 37.1 (35.0-42.0) % MCV 97.4 (78.0-102.0) fL MCH 30.4 (27.0-31.0) pg MCHC 31.3 L (32-36) g/dL RDW 14.5 H (11.6-14.4) % Plt Count 205 (150-420) K/mm3 MPV 9.4 (9.2-11.8) fl Immature Gran % (Auto) 0.8 H (0.0-0.0) % Neut % (Auto) 81.3 H (50.0-70.0) % Lymph % (Auto) 8.1 L (18.0-42.0) % [place] % (Auto) 9.1 (2.0-11.0) % Eos % (Auto) 0.4 L (1.0-6.0) % Baso % (Auto) 0.3 (0.0-1.0) % Lymph # (Auto) 0.91 L (1.10-4.50) K/mm3 [place] # (Auto) 1.02 H (0.10-0.90) K/mm3 Eos # (Auto) 0.04 (0.02-0.50) K/mm3 Baso # (Auto) 0.03 (0.00-0.10) K/mm3 Abs Immat Gran (auto) 0.09 H (0.00-0.00) K/mm3 Absolute Neuts (auto) 9.14 H (1.70-7.20) K/mm3 Absolute Nucleated RBC 0.00 (0.00-0.00) K/mm3 Nucleated RBC % 0.0 (0-0.0) % Sodium 139 (137-145) mmol/L Potassium 3.9 (3.4-5.0) mmol/L Chloride 103 (98-107) mmol/L Carbon Dioxide 29 (22-30) mmol/L Anion Gap 7 (4-12) mmol/L BUN 22 H (7-17) mg/dL Creatinine 0.76 (0.7-1.0) mg/dL Estim Creat Clear Calc 44 ml/min Estimated GFR > 60 (59 - ) Glucose 114 H (65-110) mg/dL Calculated Osmolality 292 (285-295) mOsm/kg Uric Acid 7.7 H (2.5-7.5) mg/dL Calcium 9.5 (8.4-10.2) mg/dL Total Bilirubin 0.6 (0.2-1.3) mg/dL AST 33 (14-36) U/L ALT 26 (6-35) U/L Alkaline Phosphatase 118 (38-126) U/L C-Reactive Protein 4.0 H (<1.0) mg/dL Total Protein 6.7 (6.3-8.2) g/dL Albumin 4.1 (3.5-5.1) g/dL Imaging Data Radiologist's impression: ITS Impressions Ankle X-Ray 04/02/25 11:43 IMPRESSION: 1. No fracture. 2. Moderate-sized plantar calcaneal spur. 3. Soft tissue swelling about the left ankle. If symptoms persist or worsen, consider a short-term follow-up study or additional imaging for further assessment. Discharge Plan Discharge Clinical Impression: Gout attack Qualifiers: Gout site: ankle Gout etiology: unspecified cause Laterality: left Qualified Code(s): M10.9 - Gout, unspecified Patient Disposition: Home Condition: Stable Instructions: Gout (ED), Low Purine Diet (ED) Additional Instructions: take medications as prescribed , you have to contact your PMD ti change your diuretic ,stop your water pill for few days . Patient Language: Monegasque Prescriptions: New hydrocodone-acetaminophen 5-325 mg tablet 1 tablet PO Q8H PRN (Reason: pain) Qty: 14 0RF methylprednisolone [Medrol (Mian)] 4 mg tablets,dose pack See Rx Instructions .ROUTE .COMPLEX Qty: 21 0RF Rx Instructions: for 6 days No Action Actonel 150 mg PO MONTHLY atorvastatin 40 mg tablet 40 mg PO DAILY spironolacton-hydrochlorothiaz 25-25 mg tablet 25 tablet PO DAILY famotidine 40 mg tablet 40 mg PO DAILY verapamil 180 mg capsule,ext rel. pellets 24 hr 180 mg PO DAILY montelukast 10 mg tablet 10 mg PO DAILY Vision Formula (with lutein) See Rx Instructions .ROUTE .COMPLEX Rx Instructions: Take one tablet by mouth daily acetaminophen 500 mg PO Q4-6H PRN (Reason: Pain) albuterol sulfate 90 mcg inhalation Q4H PRN (Reason: Bronchospasm) Rx Instructions: 2 puffs as needed ascorbic acid (vitamin C) 500 mg PO BID aspirin 81 mg PO EVERY OTHER DAY cholecalciferol (vitamin D3) 25 mcg PO DAILY cranberry 500 mg PO DAILY docusate sodium 100 mg PO DAILY Rx Instructions: Take two capsules by mouth nightly hydrochlorothiazide 25 mg PO DAILY melatonin 5 mg PO DAILY vitamin B complex See Rx Instructions .ROUTE .COMPLEX Rx Instructions: Take two capsules by mouth daily albuterol sulfate 90 mcg/actuation HFA aerosol inhaler 1 - 2 inh inhalation Q4-6H PRN (Reason: shortness of breath or wheezing) Qty: 8.5 2RF budesonide-formoterol [Symbicort] 160-4.5 mcg/actuation HFA aerosol inhaler 2 puff inhalation Q12H Qty: 10.2 3RF Rx Instructions: Rinse mouth and spit after each use Follow-up/Referrals: Emile Marcelo MD [Primary Care Provider, Internal Medicine] Time of Disposition: 12:35
[2025-04-02 12:52] VITALS: BP 140/55; PULSE 77; RESP 18; TEMP 36.6; O2SAT 94
== END 2025-04-02 12:56 | disposition home or self-care (01) ==
PROVIDERS: Emergency Provider Family Medicine; PCP Internal Medicine
DX: M10.9 Gout, unspecified (principal); J44.9 Chronic obstructive pulmonary disease, unspecified; I10 Essential (primary) hypertension; E78.5 Hyperlipidemia, unspecified; I25.10 Atherosclerotic heart disease of native coronary artery without angina pectoris; Z87.891 Personal history of nicotine dependence
CPT/HCPCS: 36415; 73610; 80053; 84550; 85025; 86140; 99283; J7512

== ENCOUNTER 2025-05-31 08:37 | Outpatient (CLI) | payer MEDICARE, BC, SELFPAY ==
--- OUTSIDE RECORDS SUMMARY | 2025-05-31 08:41 | XMS_ITS | Encounter Summary ---
Author Organization [facility] Address [address] [place] [address] Care Team Providers Care Media Center Specialist Name Role Phone Saúl Avendaño MD Unavailable [phone] Emile Marcelo MD Primary Care Provider [phone] Federica Roberson MD Unavailable Encounter Details Date Type Department Care Team (Late st Contact Info) Description 02/03/2023 MyChart Message Enc [facility] [address] [place], [place] [id number] [employer], [facility] Provider Air Quality Message Social History Tobacco [...] st Contact Info) Description 06/18/2025 2:30 PM ANTHROPOLOGY DEPARTMENT CHAIR Office Visit [facility] [place] [address] Federica Roberson MD [address] [place] [address] documented as of this encounter Visit Diagnoses Not on filedocumented in this encounter Care Teams Media Center Specialist Relationship Specialty Start Date End Date Emile Marcelo MD [address] [place] [phone] PCP - General INTERNAL MEDICINE 02/27/16 Saúl Avendaño MD [address] [place] [address] [place] Pediatric Dental Assistant CARDIOVASCULAR DISEASE 02/27/16 12/01/23 Federica Roberson MD [address] [place] [address] Consulting Physician CARDIOVASCULAR DISEASE 12/02/23 documented as of this encounter
--- OUTSIDE RECORDS SUMMARY | 2025-05-31 08:41 | XMS_ITS | Clinical Summary ---
Author Organization [facility] Address [address] [place] [address] Care Team Providers Care Logistics Operations Manager Name Role Phone Emile Marcelo MD Primary Care Provider [phone] Federica Roberson MD Unavailable Allergies No known active allergies Medications Cholecalciferol (VITAMIN D) 1000 UNIT tablet Take 1 tablet (1,000 Units total) by mouth daily. Active vitamin C 500 MG tablet Take 1 tablet (500 mg total) by mouth daily. Active Multiple Vitamins-[place] ls (VISION [facility]) Active vitamin B-6 100 MG tablet [...] Noted Date Diagnosed Date Unstable angina pectoris 12/02/2016 Coronary artery disease involving [place] coronar y artery 08/14/2016 S/P drug eluting coronary stent placement 2016 HLD (hyperlipidemia) HTN (hypertension) COPD (chronic obstructive pulmonary disease) Sleep apnea Family History Medical History Relation [...] Comments Blood Pressure 132/74 06/12/2024 2:40 PM STATISTICIAN MATHEMATICAL Pulse 74 06/12/2024 2:40 PM STATISTICIAN MATHEMATICAL Temperature - - Respiratory Rate 18 06/12/2024 2:40 PM STATISTICIAN MATHEMATICAL Oxygen Saturation 91% 06/12/2024 2:40 PM STATISTICIAN MATHEMATICAL Inhaled Oxygen Concentration - - Weight 70.3 kg (155 lb) 06/12/2024 2:40 PM STATISTICIAN MATHEMATICAL Height 152.4 cm (5') 06/12/2024 2:40 PM STATISTICIAN MATHEMATICAL Body Mass Index 30.27 06/12/2024 2:40 PM STATISTICIAN MATHEMATICAL Plan of Treatment Upcoming Encounters Date Type Department Care Team (Late st Contact Info) Description 06/18/2025 2:30 PM STATISTICIAN MATHEMATICAL Office Visit [facility] [address] [place] [address] Federica Roberson MD [address] [place] [address] Health Maintenance Due Date Last Done Comments ASCVD Statin 1944 AAA SCREENING 2009 Annual Medicare Wellness Visit 2009 Dexa Scan (General) 2009 Pneumococcal Vaccine: 50+ Years (2 of 2 - PPSV23, PCV20, or PCV21) 07/27/2016 06/01/2016, 04/24/2011 ASCVD LDL 06/23/2017 06/23/2016, 01/04/2016 COVID-19 Vaccine ( season) 2025 06/12/2022, 05/22/2021, 10/01/2020, Additional history exists Influenza Adult (#1) 2025 05/29/2020, 06/06/2019, 05/24/2018, Additional history exists DTaP, Tdap and Td Vaccines (3 - Td or Tdap) 05/11/2033 05/11/2023, 04/17/2015 Zoster Vaccines Completed 05/23/2020, 02/07, 03/01/2010, Additional history exists RSV Immunization or 60+ Years Completed 05/11/2023 Hepatitis A Vaccines Aged Out No long er eligible based on patient's age to complete this topic Meningococcal B Vaccine Aged Out No l [...] Most Recently Relevant to Health Maintenance Insurance [facility] [id number] MEDICARE Advance Directives Documents on File Type Date Recorded Patient Sash Sticker Expl anation Advance Directives and Living Will 11/27/2016 POWER OF MANPOWER DEVELOPMENT SPECIALIST MANAGER FO R HEALTH CARE Advance Directives and Living Will 11/27/2016 SHORT FORM POWER OF MANPOWER DEVELOPMENT SPECIALIST MANAGER Advance Directives and Living Will 08/04/2016 POWER OF MANPOWER DEVELOPMENT SPECIALIST MANAGER FO R HEALTH CARE Advance Directives and Living Will 07/29/2016 3:10 PM JOHN - Geoff Harvey Care Teams Logistics Operations Manager Relationship Specialty Start Date End Date Emile Marcelo MD [address] [place] [address] PCP - General INTERNAL MEDICINE 02/27/16 Federica Roberson MD [address] [place] [address] Consulting Physician CARDIOVASCULAR DISEASE 12/02/23
--- OUTSIDE RECORDS SUMMARY | 2025-05-31 08:42 | XMS_ITS | Encounter Summary ---
Author Organization [facility] Address [address] [place] [address] Care Team Providers Care Door Attendant Name Role Phone Saúl Avendaño MD Unavailable [phone] Emile Marcelo MD Primary Care Provider [phone] Federica Roberson MD Unavailable Encounter Details Date Type Department Care Team (Late st Contact Info) Description 12/29/2016 Abstract [facility] [address] [place] [phone] Abstract, Doc [facility] Social History Tobacco [...] st Contact Info) Description 06/18/2025 2:30 PM REDEVELOPMENT SPECIALIST Office Visit [facility] [place] [address] Federica Roberson MD [address] [place] [address] documented as of this [...] on filedocumented in this encounter Care Teams Door Attendant Relationship Specialty Start Date End Date Emile Marcelo MD [address] [place] [id number] PCP - General INTERNAL MEDICINE 02/27/16 Saúl Avendaño MD [address] [place] [address] [place] Pharm[employer] Assistant CARDIOVASCULAR DISEASE 02/27/16 12/01/23 Federica Roberson MD [address] [place] [address] Consulting Physician CARDIOVASCULAR DISEASE 12/02/23 documented as of this encounter
[2025-05-31 08:50] LABS: Hematocrit 41.6 % (35.0-42.0); Hemoglobin 13.2 g/dL (11.7-13.8); Mean Corpuscular HGB Conc 31.7 g/dL (32-36); Mean Corpuscular Hemoglobin 30.4 pg (27.0-31.0); Mean Corpuscular Volume 95.9 fL (78.0-102.0); Platelet Count Result 230 K/mm3 (150-420); Red Blood Count 4.34 M/mm3 (4.20-5.40); White Blood Count 8.7 K/mm3 (4.8-10.8)
[2025-05-31 08:52] LABS: Add Urine Microscopic? NO; Appearance Urine Clear (Clear); Glucose Urine UA Negative (Negative); Leukocyte Esterase Ur Negative (Negative); Nitrate Urine Negative (Negative); Specific Grav Ur 1.015 (1.010-1.020)
[2025-05-31 09:25] LABS: Alanine Aminotransferase 22 U/L (6-35); Albumin Level 4.5 g/dL (3.5-5.1); Alkaline Phosphatase 121 U/L (38-126); Anion Gap 9 mmol/L (4-12); Aspartate Amino Transferase 31 U/L (14-36); Bilirubin,Total 0.6 mg/dL (0.2-1.3); Blood Urea Nitrogen 38 mg/dL (7-17); Calcium 10.4 mg/dL (8.4-10.2); Carbon Dioxide 30 mmol/L (22-30); Chloride 101 mmol/L (98-107); Cholesterol 160 mg/dL (0-200); Estimated Glomerular Filt Rate > 60; Glucose 111 mg/dL (65-110); HDL Direct 59 mg/dL; Osmolality Calculated 300 mOsm/kg (285-295); Potassium 4.3 mmol/L (3.4-5.0); Sodium 140 mmol/L (137-145); Total Protein 7.4 g/dL (6.3-8.2); Triglycerides 109 mg/dL (<150)
== END 2025-05-31 08:38 | disposition home or self-care (01) ==
LOC: CHSLAB 08:39
PROVIDERS: Internal Medicine; PCP Internal Medicine; Visit Provider Internal Medicine
DX: E78.5 Hyperlipidemia, unspecified (principal); R82.81 Pyuria
CPT/HCPCS: 36415; 80053; 80061; 81003; 85027; 87086